=== PATIENT | male | born 1980 | race Caucasian/White ===

== ENCOUNTER 2016-10-17 09:59 | Emergency (ER) | payer OTHER ==
[~2016-10-17] VITALS: Ht 190.5 cm; Wt 87.0 kg
[2016-10-17 10:01] VITALS: BP 149/77
[2016-10-17] MEDS ORDERED: ALLO300T PO (10:29)
== END 2016-10-17 10:42 | disposition home or self-care (01) ==
LOC: ED 10:35
DX: F41.1 Generalized anxiety disorder (principal); Z88.0 Allergy status to penicillin
CPT/HCPCS: 99284

== ENCOUNTER 2018-02-26 19:47 | Emergency (ER) | payer OTHER ==
[~2018-02-26] VITALS: Ht 190.5 cm; Wt 89.7 kg
[~2018-02-26 19:47] MED LIST: ALLO300T PO
[2018-02-26] MEDS ORDERED: PANTOPRAZOLE 80 MG in SODIUM CHLORIDE 0.9% 100 ML IV SCH (20:09)
[2018-02-26] MEDS ORDERED: PANTOPRAZOLE 80 MG in SODIUM CHLORIDE 0.9% 50 ML IVPB ONE (20:09)
[2018-02-26] MEDS ORDERED: SODIUM CHLORIDE FLUSH 10ML SYR IVF ONE (20:30)
[2018-02-26 20:37] LABS: BASOPHILS # (AUTO) 0.03 x10^3/uL (0-0.1); BASOPHILS % (AUTO) 0 % (0-1); EOSINOPHILS # (AUTO) 0.09 x10^3/uL (0-0.4); EOSINOPHILS % (AUTO) 1 % (1-7); LYMPHOCYTES % (AUTO) 9 % (22-44); MD NO; MEAN CORPUSCULAR HEMOGLOBIN 29.6 pg (27.5-34.5); MEAN CORPUSCULAR HGB CONC 34.2 g/dL (33.2-36.2); MEAN CORPUSCULAR VOLUME 86.7 fL (81-97); MEAN PLATELET VOLUME 10.1 fL (7.4-10.4); MONOCYTES # (AUTO) 0.79 x10^3/uL (0.2-0.8); MONOCYTES % (AUTO) 5 % (2-9); NEUTROPHILS # (AUTO) 12.98 x10^3/uL (1.8-6.8); NEUTROPHILS % (AUTO) 85 % (42-75); PLATELET COUNT 242 x10^3/uL (130-400); RED BLOOD COUNT 5.72 x10^6/uL (4.38-5.82); RED CELL DISTRIBUTION WIDTH 13.3 % (9.4-14.8)
[2018-02-26 20:46] LABS: INTERNATIONAL NORMALIZED RATIO 1.01 (0.93-1.1); PROTHROMBIN TIME 10.7 Seconds (9.6-11.5)
[2018-02-26 20:48] LABS: ALANINE AMINOTRANSFERASE 56 U/L (12-78); ALBUMIN 4.7 g/dL (3.4-5.0); ANION GAP 11 mmol/L (5-15); CALCIUM 9.4 mg/dL (8.5-10.1); CHLORIDE 104 mmol/L (98-107); CREATININE 1.28 mg/dL (0.7-1.3)
[2018-02-26 20:50] LABS: ALKALINE PHOSPHATASE 83 U/L (45-117); BILIRUBIN,TOTAL 0.8 mg/dL (0.2-1.0); TOTAL PROTEIN 8.3 g/dL (6.4-8.2)
[2018-02-26 20:52] LABS: MICROSCOPIC INDICATED
[2018-02-26 20:59] LABS: CULTURE INDICATED? NO
[2018-02-26] MEDS ORDERED: OMNIPAQUE 350 MG/ML, 100ML BOTTLE ONE (21:30)
[2018-02-26 21:59] VITALS: BP 123/75
== END 2018-02-26 22:21 | disposition home or self-care (01) ==
LOC: ED 21:20
DX: K92.2 Gastrointestinal hemorrhage, unspecified (principal)
CPT/HCPCS: 36415; 74177; 80053; 81001; 83605; 83690; 85025; 85610; 85730; 86677; 86850; 86900; 93005; 96365; 96366; 99284; C9113; Q9967